=== PATIENT | female | born 1940 | race African-American/Black ===

== ENCOUNTER 2019-05-28 07:46 | Emergency (ER) | payer OTHER ==
[~2019-05-28] VITALS: Ht 165.1 cm; Wt 72.6 kg
[~2019-05-28 07:46] MED LIST: CALICUM 500+D1 EACH PO; LOVASTAT40 PO; NORCO 5-325 TA1 EACH PO
[2019-05-28] MEDS ORDERED: ALEVE220 MG PO (08:48)
[2019-05-28 08:59] VITALS: BP 185/66
--- NOTE | 2019-05-29 09:10 | EKG ---
[address] [address] ELECTROCARDIOGRAM REPORT Name: ALEX BRUNSON Room #: DEP [facility]#: [id number] ������������������ Admission: 05/28/19 ������������������ Attend Phys: Discharge: 05/28/19 ������������������ Date of : 42 Report #: [id number] ����������������������������������������������������������������� [id number] THIS REPORT FOR: //name// [facility] ED Test Date: 2019-05-28 Test Time: 07:51:12 Pat Name: ALEX BRUNSON Department: Room: Gender: F [employer] Worker: Florinda : 1940 Requested By: Xu Cunningham Order Number: [id number] MD: Mario Silva Measurements Intervals [place] Rate: 75 P: 12 GA: 179 QRS: -24 QRSD: 104 T: 67 QT: 409 QTc: 457 Interpretive Statements Sinus rhythm Left ventricular hypertrophy Nonspecific T abnormalities, lateral leads No previous ECG available for comparison Electronically Signed On 05-29-2019 9:09:47 CDT by Mario Silva [email or web address] ��������������������������������������������� <ELECTRONICALLY SIGNED> ���������������������������������������� By: Mario Silva MD, [facility] ��������������������������������������������� 05/29/19 [phone] Mario Silva MD, FACC /EPI
== END 2019-05-28 08:59 | disposition home or self-care (01) ==
LOC: ER 07:46
DX: S20.212A Contusion of left front wall of thorax, initial encounter (principal); R03.0 Elevated blood-pressure reading, without diagnosis of hypertension; Z90.710 Acquired absence of both cervix and uterus; Z79.899 Other long term (current) drug therapy; V49.88XA Car occupant (driver) (passenger) injured in other specified transport accidents, initial encounter; Y93.89 Activity, other specified; Y92.413 State road as the place of occurrence of the external cause; Y99.9 Unspecified external cause status

== ENCOUNTER 2019-11-21 16:14 | Emergency (ER) | payer OTHER ==
[~2019-11-21] VITALS: Ht 165.1 cm; Wt 73.0 kg
[~2019-11-21 16:14] MED LIST changes: +ALEVE220 MG PO
[2019-11-21] MEDS ORDERED: VITAMIN D32000 UNIT PO (16:47)
[2019-11-21 16:48] LABS: HEMATOCRIT 39.4 % (37.0-47.0); HEMOGLOBIN 13.1 gm/dL (12.0-15.0); MCH 31.3 pg (26.0-34.0); MCHC 33.2 g/dL (28.0-37.0); MCV 94.2 fL (80.0-100.0); RBC 4.19 mil/uL (4.20-5.00); RDW 13.7 % (10.5-14.5); WBC 6.7 thou/uL (4.0-11.0)
[2019-11-21 16:55] LABS: CALCIUM 9.3 mg/dL (8.5-10.1); CREATININE 0.7 mg/dL (0.6-1.0); POTASSIUM 3.2 mmol/L (3.5-5.1)
[2019-11-21 17:03] LABS: ALBUMIN 3.9 g/dL (3.4-5.0); TOTAL BILIRUBIN 0.5 mg/dL (<0.1-1.0); TOTAL PROTEIN 7.4 g/dL (6.4-8.2)
[2019-11-21] MEDS ORDERED: NORVASC5 M1 PO (17:32)
[2019-11-21 17:34] VITALS: BP 212/100
--- NOTE | 2019-11-21 19:51 | EKG ---
[place] [address] [facility] [place] [address] ELECTROCARDIOGRAM REPORT Name: ALEX BRUNSON Room #: DEP [facility]#: [id number] Admission: 11/21/19 Attend Phys: Discharge: 11/21/19 Date of : 42 Report #: [id number] THIS REPORT FOR: //name// [facility] ED Test Date: 2019-11-21 Test Time: 16:41:53 Pat Name: ALEX BRUNSON Department: Room: Gender: F Second Cutter: DARIANA : 1940 Requested By: Juni Shipley Order Number: [id number] MD: Mario Silva Measurements Intervals [place] Rate: 65 P: 23 [place]: 194 QRS: -27 QRSD: 105 T: 78 QT: 404 QTc: 421 Interpretive Statements Sinus rhythm Left ventricular hypertrophy Compared to ECG 05/28/2019 07:51:12 T-wave abnormality no longer present Electronically Signed On 11-21-2019 19:51:00 PREPARER by Mario Silva [email or web address] <ELECTRONICALLY SIGNED> By: Mario Silva MD, [facility] 11/21/191950 40 40 Mario Silva MD, FACC /EPI
== END 2019-11-21 17:35 | disposition home or self-care (01) ==
LOC: ER 16:14
PROVIDERS: Emergency Medicine
DX: I10 Essential (primary) hypertension (principal); Z90.710 Acquired absence of both cervix and uterus